=== PATIENT | female | born 1980 | race Caucasian/White ===

== ENCOUNTER 2019-08-04 20:03 | Emergency (ER) | payer BC ==
[2019-08-04] MEDS ORDERED: BENADRYL 50 MG/ML IV ONE (20:52)
[2019-08-04] MEDS ORDERED: TYLENOL 325 MG PO ONE (20:52)
[2019-08-04] MEDS ORDERED: TORAdol 30 mg Injection IV ONE (20:52)
[2019-08-04] MEDS ORDERED: TORAdol 30 mg Injection ONE (21:05)
[2019-08-04] MEDS ORDERED: BENADRYL 50 MG/ML ONE (21:06)
[2019-08-04] MEDS ORDERED: TYLENOL 325 MG ONE (21:06)
[2019-08-04 21:09] LABS: Absolute Neutrophil Ct (ANC) 7.63 (1.4-6.9); BASOPHIL % 0.2 % (0.0-0.4); Basophil (Absolute #) 0.02 (0-0.4); Eosinophil % 1.1 % (0.00-5.0); Eosinophil (Absolute #) 0.12 (0-0.5); Hematocrit 45.2 % (35-47); Hemoglobin 15.2 gm/dl (12.0-16.0); Lymphocyte (Absolute #) 2.51 (1.0-4.6); Lymphocytes % 22.5 % (24.0-44.0); Mean Cell Volume 94.6 fl (78-100); Mean Corpuscular Hemoglobin 31.8 pg (26-32); Mean Corpuscular Hgb Concent. 33.6 g/dl (32-36); Mean Platelet Volume 9.5 fl (6-9.5); Monocyte (Absolute #) 0.89 (0.0-1.3); Neutrophil % 68.2 % (36.0-66.0); Platelet Count 326 K/mm3 (150-450); Red Blood Count 4.78 M/mm3 (4.1-5.4); Red Cell Distribution Width 12.9 % (11.5-14.0); White Blood Count 11.2 K/mm3 (4.0-10.5)
[2019-08-04 21:21] LABS: ALBUMIN 4.5 g/dL (3.5-5.0); ALKALINE PHOSPHATASE 72 U/L (38-126); ANION GAP 15.5 MEQ/L (5-15); BLOOD UREA NITROGEN 10 mg/dL (7-17); CHLORIDE 105 mmol/L (98-107); CK-Creatinine Phosphokinase 80 U/L (30-135); Calcium 9.9 mg/dL (8.4-10.2); Carbon Dioxide 24 mmol/L (22-30); Creatinine 1 0.61 mg/dL (0.52-1.04); Glucose 94 mg/dL (74-106); Potassium 3.9 mmol/L (3.5-5.1); SGOT/AST 25 U/L (14-36); SGPT/ALT 23 U/L (0-35); SODIUM 141 mmol/L (137-145); Total Protein 8.1 g/dL (6.3-8.2)
[2019-08-04 22:00] LABS: TSH, 3RD Generation 1.93 mIU/L (0.47-4.68)
--- NOTE | 2019-08-04 22:00 | ERPHSYRPT ---
- History of Present Illness Time Seen by Provider: 08/04/19 20:50 Source: patient Exam Limitations: no limitations Patient Subjective Stated Complaint: Right leg/foot pain Triage Nursing Assessment: Patient ambulated back to ED and transferred self to bed. Patient A+O X3. Patient's skin pink, warm and dry. Patient complains of right leg/foot cramps. Patient states for the past two days the cramping has gotten worse. Patient complains of cramping down to right foot and up through calf. No redness or swelling noted. Negative Mine's sign. Physician History: Right leg and foot cramping over the past two days. Patient has been standing more hours and working more hours over this past week. Patient denies any injuries. Method of Injury: other (none) Occurred: days ago (2) Quality: intermittent, cramping, throbbing Severity of Pain-Max: severe Severity of Pain-Current: severe Lower Extremities Pain: foot: right, other: right (lower leg) Modifying Factors: Improves With: rest. Worsens With: movement Associated Symptoms: No unable to bear weight, No dizzy, No fainted, No snapping sensation, No popping sensation Allergies/Adverse Reactions: No Known Drug Allergies Allergy (Unverified 08/04/19 20:45) Hx Influenza Vaccination/Date Given: No Hx Pneumococcal Vaccination/Date Given: No Immunizations Up to Date: Yes - Review of Systems Constitutional: No Fever, No Chills, No Fatigue Eyes: No Eye Pain, No Vision Changes Ears, Nose, & Throat: No Mouth Swelling, No Painful Swallowing Respiratory: No Cough, No Dyspnea Cardiac: No Chest Pain, No Palpitations Abdominal/Gastrointestinal: No Abdominal Pain, No Nausea, No Vomiting Genitourinary Symptoms: No Hematuria, No Urinary Retention, No Flank Pain Musculoskeletal: No Back Pain, No Neck Pain, No Joint Redness, No Joint Pain Skin: No Cellulitis, No Pruritis, No Rash Neurological: No Focal Weakness, No Parasthesia, No Tics, No Tremors Psychological: No Anxiety Endocrine: No Polydipsia Hematologic/Lymphatic: No Easy Bleeding, No Easy Bruising All Other Systems: Reviewed and Negative - Past Medical History Pertinent Past Medical History: No Neurological History: No Pertinent History ENT History: No Pertinent History Cardiac History: No Pertinent History Respiratory History: No Pertinent History Endocrine Medical History: No Pertinent History Musculoskeletal History: No Pertinent History GI Medical History: No Pertinent History History: No Pertinent History Psycho-Social History: Depression Female Reproductive Disorders: No Pertinent History - Past Surgical History Past Surgical History: Yes Neuro Surgical History: No Pertinent History Cardiac: No Pertinent History Respiratory: No Pertinent History Gastrointestinal: Cholecystectomy Genitourinary: No Pertinent History Musculoskeletal: No Pertinent History Female Surgical History: Other Other Surgical History: Fallopian tube removed 10 years ago - Social History Smoking Status: Current every day smoker How long have you smoked: years Exposure to second hand smoke: Yes Drug Use: marijuana Patient Lives Alone: No - Female History Hx Last Menstrual Period: July 19 Hx Now: No - Nursing Vital Signs Nursing Vital Signs: Initial Vital Signs Temperature 97.9 F 08/04/19 20:46 Pulse Rate 89 08/04/19 20:46 Respiratory Rate 18 08/04/19 20:46 Blood Pressure 132/88 08/04/19 20:46 O2 Sat by Pulse Oximetry 97 08/04/19 20:46 Pain Scale Pain Intensity 6 - Physical Exam General Appearance: no apparent distress Eyes, Ears, Nose, Throat Exam: moist mucous membranes Neck Exam: normal inspection, non-tender, supple, full range of motion Cardiovascular/Respiratory Exam: chest non-tender, normal breath sounds, regular rate/rhythm, heart sounds normal Back Exam: normal inspection, normal range of motion, No CVA tenderness, No vertebral tenderness, No rash Hips Exam: bilateral: non-tender, normal inspection, normal range of motion, no evidence of injury Legs Exam: bilateral leg: non-tender, normal inspection, normal range of motion , no evidence of injury Knees Exam: bilateral knee: non-tender, normal inspection, normal range of motion, no evidence of injury Ankle Exam: bilateral ankle: non-tender, normal inspection, normal range of motion, no evidence of injury Foot Exam: bilateral foot: non-tender, normal inspection, normal range of motion , no evidence of injury DTR - Lower Extremities Exam: ankle (R): 2+, ankle (L): 2+ Neuro/Tendon Exam: normal sensation, normal motor functions, normal tendon functions, responds to pain, no evidence tendon injury Mental Status Exam: alert, oriented x 3, cooperative Skin Exam: normal color, warm, dry, No rash, No jaundice, No cyanosis, No embolic lesions SpO2 Interpretation: normal SpO2: 97 O2 Delivery: Room Air - Course Nursing assessment & vital signs reviewed: Yes Ordered Tests: Active Orders 24 hr Category Date Time Status IV Insertion STAT Care 08/04/19 20:50 Active CBC W DIFF Stat Lab 08/04/19 20:50 Completed CK-Creatinine Phosphokinase Stat Lab 08/04/19 20:50 Completed CMP Stat Lab 08/04/19 20:50 Completed MAGNESIUM Stat Lab 08/04/19 20:51 Ordered TSH [TSH, 3RD Generation] Stat Lab 08/04/19 20:51 Ordered Medication Summary Discontinued Medications Generic Name Dose Route Start Last Admin Trade Name Freq PRN Reason Stop Dose Admin Acetaminophen 975 mg 08/04/19 20:52 08/04/19 21:07 Tylenol 325 Mg PO 08/04/19 20:53 975 mg STAT ONE Administration Acetaminophen Confirm 08/04/19 21:06 Tylenol 325 Mg Administered 08/04/19 21:07 Dose 975 mg .ROUTE .STK-MED ONE Diphenhydramine HCl 25 mg 08/04/19 20:52 08/04/19 21:08 Benadryl 50 Mg/Ml IV 08/04/19 20:53 25 mg STAT ONE Administration Diphenhydramine HCl Confirm 08/04/19 21:06 Benadryl 50 Mg/Ml Administered 08/04/19 21:07 Dose 50 mg .ROUTE .STK-MED ONE Ketorolac Tromethamine 30 mg 08/04/19 20:52 08/04/19 21:09 Toradol 30 Mg Injection IV 08/04/19 20:53 30 mg STAT ONE Administration Ketorolac Tromethamine Confirm 08/04/19 21:05 Toradol 30 Mg Injection Administered 08/04/19 21:06 Dose 30 mg .ROUTE .STK-MED ONE Lab/Rad Data: Laboratory Result Diagrams 08/04/19 20:50 08/04/19 20:50 Laboratory Results 08/04/19 08/04/19 08/04/19 Range/Units 20:51 20:50 20:50 WBC 11.2 H (4.0-10.5) K/mm3 RBC 4.78 (4.1-5.4) M/mm3 Hgb 15.2 (12.0-16.0) gm/dl Hct 45.2 (35-47) % MCV 94.6 (78-100) fl MCH 31.8 (26-32) pg MCHC 33.6 (32-36) g/dl RDW 12.9 (11.5-14.0) % Plt Count 326 (150-450) K/mm3 MPV 9.5 (6-9.5) fl Gran % 68.2 H (36.0-66.0) % Eos # (Auto) 0.12 (0-0.5) Absolute Lymphs (auto) 2.51 (1.0-4.6) Absolute Monos (auto) 0.89 (0.0-1.3) Lymphocytes % 22.5 L (24.0-44.0) % Monocytes % 8.0 (0.0-12.0) % Eosinophils % 1.1 (0.00-5.0) % Basophils % 0.2 (0.0-0.4) % Absolute Granulocytes 7.63 H (1.4-6.9) Basophils # 0.02 (0-0.4) Sodium 141 (137-145) mmol/L Potassium 3.9 (3.5-5.1) mmol/L Chloride 105 (98-107) mmol/L Carbon Dioxide 24 (22-30) mmol/L Anion Gap 15.5 H (5-15) MEQ/L BUN 10 (7-17) mg/dL Creatinine 0.61 (0.52-1.04) mg/dL Estimated GFR > 60.0 ML/MIN Glucose 94 (74-106) mg/dL Calcium 9.9 (8.4-10.2) mg/dL Magnesium 2.0 (1.6-2.3) mg/dL Total Bilirubin 0.30 (0.2-1.3) mg/dL AST 25 (14-36) U/L ALT 23 (0-35) U/L Alkaline Phosphatase 72 (38-126) U/L Creatine Kinase 80 (30-135) U/L Serum Total Protein 8.1 (6.3-8.2) g/dL Albumin 4.5 (3.5-5.0) g/dL TSH 3rd Generation 1.930 (0.47-4.68) mIU/L - Progress Progress: improved Progress Note: 08/04/19 22:02 pain improved after IV Toradol and Benadryl. No neurovascular or integument or musculoskeletal abnormalities in the right lower extremity Counseled pt/family regarding: lab results, diagnosis, need for follow-up - Departure Departure Disposition: Home Clinical Impression: Pain in right lower leg, Elevated blood pressure reading without diagnosis of hypertension Condition: Good Critical Care Time: No Referrals: MCKINLEY MARTINS NP [Primary Care Provider] - [facility] [id number] Instructions: DASH Diet, Muscle Spasms (DC), Muscle and Bone Pain (DC) Additional Instructions: return immediately to the emergency department if any worse pain, discoloration , skin changes, loss of sensation, loss of strength or any concerning sign or symptom that was not present his emergency room visit for immediate reevaluation in the emergency department. Prescriptions: Etodolac 400 mg [Lodine 400 mg] 400 mg PO BID PRN PRN #20 tablet PRN Reason: Pain
[2019-08-04 22:14] VITALS: BP 116/78; PULSE 68; O2SAT 98
== END 2019-08-04 22:18 | disposition home or self-care (01) ==
LOC: ED 20:03
DX: M79.661 Pain in right lower leg (principal); R03.0 Elevated blood-pressure reading, without diagnosis of hypertension
CPT/HCPCS: 36000; 36415; 80053; 82550; 83735; 84443; 85025; 96374; 96375; 99284; J1200; J1885; A9270-GY